=== PATIENT | female | born 1945 | race Caucasian/White ===

== ENCOUNTER 2020-10-26 09:28 | Day surgery (SDC) | payer MEDICARE, OTHER, SELFPAY ==
[2020-10-15 15:00] VITALS: BMI 25.1
--- NOTE | 2020-10-21 16:37 | MHC.SHP ---
Pre-Procedural Eval Section A The patient is an INPATIENT: No The History & Physical has been completed within 30 days and I have reviewed it.: Yes Section B Chief Complaint: Cataract Right Eye Allergies: Allergies Allergy/AdvReac Type Severity Reaction Status Date / Time Sulfa (Sulfonamide Allergy Intermediate Rash Verified 10/15/20 15:08 Antibiotics) [SULFA (SULFONAMIDE ANTIBIOTICS)] nitrofurantoin AdvReac Intermediate Nausea Verified 10/15/20 15:08 [From Macrobid] Plan Diagnosis/Plan: Unchanged I have reviewed the history and physical and performed a pertinent physical examination on my patient. No changes have occurred unless specified.
--- NOTE | 2020-10-23 09:58 | P.CONAN_ITS ---
Documented by User: Kamila Tinoconey 10/23/20 09:59 HPI - Anesthesia Eval Consult details Narrative: 74yo F for Right Cataract Extraction IOL Insertion PCP Cleared No previous cataract on record [facility] Past Medical History Medical History (Updated 10/15/20 @ 15:06 by Thi Hunt) COVID-19 vaccine administered History of breast implant removal History of chemotherapy History of skin cancer HTN (hypertension) Hx of radiation therapy Hx of thyroid cancer HX: breast cancer Thyroid disease Surgical History Surgical History (Updated 10/15/20 @ 15:05 by Thi Hunt) H/O colonoscopy History of lumpectomy of both breasts Hx of bilateral mastectomy Hx of left cataract extraction Hx of total thyroidectomy Social History Social History Patient Tobacco Use Status: Never used Tobacco Use of substances other than those prescribed or required for medical reasons: No Have you been hit, kicked, punched, or otherwise hurt by someone within the past year? If so, by whom?: No Are you DNR?: No Advance Directives Information Provided: No Recently lost weight without trying: No Eating poorly because of decreased appetite: No Nutrition Risks: No Nutritional Risk Poor oral hygiene: No Meds Allergies Allergy/AdvReac Type Severity Reaction Status Date / Time Sulfa (Sulfonamide Allergy Intermediate Rash Verified 10/15/20 15:08 Antibiotics) [SULFA (SULFONAMIDE ANTIBIOTICS)] nitrofurantoin AdvReac Intermediate Nausea Verified 10/15/20 15:08 [From Macrobid] Home Medications Medication Instructions Recorded Confirmed Last Taken Type aspirin [Aspirin Low-Strength] 81 mg PO DAILY 10/15/20 10/15/20 Unknown History atenolol 50 mg PO DAILY 10/15/20 10/15/20 Unknown History calcium carbonate-vitamin D2 1 tab PO DAILY 10/15/20 10/15/20 Unknown History [Calcium + Vitamin D] cholecalciferol (vitamin D3) 25 mcg PO DAILY 10/15/20 10/15/20 Unknown History [Vitamin D3] letrozole 2.5 mg PO DAILY 10/15/20 10/26/20 10/26/20 History levothyroxine 125 mcg PO DAILY 10/15/20 10/15/20 Unknown History multivitamin 1 tab PO DAILY 10/15/20 10/15/20 Unknown History Exam Exam Date and Time: October 23, 2020 0958 Height,Weight and Vital Signs: Height 5 ft 5 in Weight 68.492 kg Assessment and Plan Assessment Anesthesia Assessment: Chart Reviewed Documented by User: Joy England 10/26/20 10:14 [facility] Past Medical History Medical History (Updated 10/15/20 @ 15:06 by Thi Hunt) COVID-19 vaccine administered History of breast implant removal History of chemotherapy History of skin cancer HTN (hypertension) Hx of radiation therapy Hx of thyroid cancer HX: breast cancer Thyroid disease Surgical History Surgical History (Updated 10/15/20 @ 15:05 by Thi Hunt) H/O colonoscopy History of lumpectomy of both breasts Hx of bilateral mastectomy Hx of left cataract extraction Hx of total thyroidectomy Social History Social History Patient Tobacco Use Status: Never used Tobacco Use of substances other than those prescribed or required for medical reasons: No Have you been hit, kicked, punched, or otherwise hurt by someone within the past year? If so, by whom?: No Are you DNR?: No Advance Directives Information Provided: No Recently lost weight without trying: No Eating poorly because of decreased appetite: No Nutrition Risks: No Nutritional Risk Poor oral hygiene: No Meds Allergies Allergy/AdvReac Type Severity Reaction Status Date / Time Sulfa (Sulfonamide Allergy Intermediate Rash Verified 10/15/20 15:08 Antibiotics) [SULFA (SULFONAMIDE ANTIBIOTICS)] nitrofurantoin AdvReac Intermediate Nausea Verified 10/15/20 15:08 [From Macrobid] Home Medications Medication Instructions Recorded Confirmed Last Taken Type aspirin [Aspirin Low-Strength] 81 mg PO DAILY 10/15/20 10/15/20 Unknown History atenolol 50 mg PO DAILY 10/15/20 10/15/20 Unknown History calcium carbonate-vitamin D2 1 tab PO DAILY 10/15/20 10/15/20 Unknown History [Calcium + Vitamin D] cholecalciferol (vitamin D3) 25 mcg PO DAILY 10/15/20 10/15/20 Unknown History [Vitamin D3] letrozole 2.5 mg PO DAILY 10/15/20 10/26/20 10/26/20 History levothyroxine 125 mcg PO DAILY 10/15/20 10/15/20 Unknown History multivitamin 1 tab PO DAILY 10/15/20 10/15/20 Unknown History Exam Airway Mallampati Class: II (Caps laterally) TM Dist: >3cm Neck ROM: Full Heart: RRR Lungs: CTA Assessment and Plan Assessment Anesthesia Assessment: Anesthesia Plan Discussed and Chart Reviewed Final Anesthetic Review NPO: Yes (Sip water with meds) ASA Class: II Final Preanesthetic Review: No Changes in Pt Med Stat and Consent Obtained/Reviewed Patient Risk: Intermediate Procedure Risk: Intermediate Anesthetic Plan Anesthetic Plan: MAC: Disposition: Standard PACU
[2020-10-26 09:58] VITALS: BP 148/52; PULSE 79; RESP 16; TEMP 37.3; O2SAT 98
[2020-10-26] MEDS: Tetracaine HCl/PF 0.5% Oph Sol 4 ML DROPS 1 DROP EYE-RIGHT (09:58)
[2020-10-26] MEDS: Lactated Ringers 500 ML 50 ML IV (09:58)
[2020-10-26] MEDS: Tropicamide 1 % Ophth Sol 3 ML BTL 1 DROP EYE-RIGHT ×3 (10:00→10:11)
[2020-10-26] MEDS: Phenylephrine HCL 2.5% Oph SoL 2 ML BOTTLE 1 DROP EYE-RIGHT ×3 (10:02→10:16)
--- NOTE | 2020-10-26 11:45 | HO.PNOPHT ---
Ophthalmology Procedure Procedure Date of Service: 10/26/20 Ophthalmology Viscoelastic: Healon Duet Dual Pack Pro Ophthalmology Lenses: TECNIS PS0320 (19.5) Procedure Notes: PREOPERATIVE DIAGNOSIS: Decreased visual acuity right eye secondary to cataract POSTOPERATIVE DIAGNOSIS: Same PROCEDURE: Right cataract extraction with intraocular lens insertion SURGEON: Marty Williamson M.D. ANESTHESIA: Topical/MAC ESTIMATED BLOOD LOSS: None COMPLICATIONS: None After obtaining informed consent, the patient was brought to the operating room suite and placed in the supine position. After adequate sedation per anesthesia, topical drops of Tetracaine were given to the right eye. The eye was then prepped and draped in the usual sterile fashion. The operating room microscope was then positioned over the operative eye and a lid speculum placed. A paracentesis was created. Viscoelastic was then instilled into the anterior chamber. A three plane incision was then created temporally, utilizing a 2.85 mm keratome. Capsulotomy forceps were then utilized to create a circular tear capsulotomy. Hydrodissection and hydrodelineation were carried out until adequate mobilization of the nucleus occurred. Phacoemulsification was then utilized to remove the dense central nucleus followed by removal of the cortical material utilizing the automated aspiration irrigation unit. Viscoelastic was instilled into the posterior capsular bag followed by placement of a posterior chamber intraocular lens without difficulty. The residual Viscoelastic was then removed utilizing the automated IA machine. The wound was checked and found to be watertight. The patient tolerated the procedure well and the lid speculum was removed. Intracameral injection of Vigamox 0.1 mL followed by a subtenon injection of Kenalog-40 0.2 mL were administered. The patient will be seen in the a.m.
[2020-10-26 11:46] VITALS: BP 146/53; PULSE 73; RESP 16; TEMP 36.8; O2SAT 97
== END 2020-10-26 11:50 | disposition home or self-care (01) ==
PROVIDERS: PCP Internal Medicine; Visit Provider Ophthalmology
PROC: (CPT 66985; principal; 2020-10-26 11:40)
DX: H25.11 Age-related nuclear cataract, right eye (principal); H54.7 Unspecified visual loss; Z96.1 Presence of intraocular lens; I10 Essential (primary) hypertension; Z85.3 Personal history of malignant neoplasm of breast; Z92.21 Personal history of antineoplastic chemotherapy; Z92.3 Personal history of irradiation; Z85.828 Personal history of other malignant neoplasm of skin; Z85.850 Personal history of malignant neoplasm of thyroid; Z88.2 Allergy status to sulfonamides; Z88.8 Allergy status to other drugs, medicaments and biological substances; Z79.82 Long term (current) use of aspirin; Z79.899 Other long term (current) drug therapy
CPT/HCPCS: 66984; J2250; J3300; V2632